=== PATIENT | female | born 1945 | race Caucasian/White ===

== ENCOUNTER 2025-02-04 16:02 | Emergency (ER) | payer MEDICARE ==
[~2025-02-04] VITALS: Ht 165.1 cm; Wt 72.2 kg
[2025-02-04 16:05] VITALS: BP 121/76; PULSE 97; RESP 18; O2SAT 96
--- NOTE | 2025-02-04 16:32 | Physician Documentation ---
History of Present Illness ~ Chief Complaint: Rib pain Stated Complaint: RIB PAIN Time Seen by MD: 16:32 HPI 79-year-old female presents to the emergency department reporting that she fell onto her right ribs on the rim of the bath tub, and immediately noticed pain to the right ribs. Denies any other concerns or injury. Allergies: Coded Allergies: iodine (Unverified Allergy, Unknown, 02/04/25) Active Prescriptions See Medication Reconciliation Form. Medication Reconciliation Scheduled PRN Hydrocodone Bit/Acetaminophen 5/325 MG (Carefree 5/325 MG), 1 TAB PO Q8H PRN for pain Lidocaine (Ztlido), 1 PATCH TOP QDAY PRN PRN for pain Review of Systems ROS As stated above in the HPI, otherwise all systems are reviewed and negative. Physical Exam Vital Signs: Temperature: 98.9, Heart Rate: 97, Respiratory Rate: 18, BP: 121/76, Pulse Oximetry: 96, Weight: 72.250 Oxygen Flow Rate: 0 Physical Exam General: Alert, no apparent distress. HEENT: PERRL, EOMI, no injection, moist mucous membranes. Neck: Full range of motion. Respiratory: Lungs clear, no respiratory distress. Chest: No accessory muscle use. TTP right ribs with no crepitus. Cardiovascular: Regular rate and rhythm, no murmurs. Gastrointestinal: Soft, nontender, nondistended. Bowels sounds present. Extremities: Normal range of motion, no deformity. Neurologic: Oriented x4. Psychiatric: Normal mood and affect. Skin: Normal color, warm and dry. No edema, no ecchymosis. Progress Results/Orders Results/Orders Vital Signs 02/04/25 16:05 Temp 98.9 Pulse 97 Resp 18 B/P (MAP) 121/76 Pulse Ox 96 O2 Flow Rate 0 EKG/XRAY/CT/US/VASC/MRI Chest X-Ray : Additional Comments [facility] [address] , [place], [facility] [id number] DIAGNOSTIC RADIOLOGY Patient: NIRU BARBA Medical Record: [id number] [facility] : 1945, Age: 79 Sex: Female Location: ER Patient Status: REG ER Service Date/Time: 02/04/251623 Ordering Physician: CHLOE MUJICA DO Exam: UNI RIBS WITH PA CHEST [facility] EXAMINATION: DI UNI RIBS WITH PA CHEST INDICATION: RIB PAIN right COMPARISON: None TECHNIQUE: Frontal view of the chest and 5 views of the right ribs history FINDINGS: No focal consolidation, pleural effusion or significant pneumothorax. Normal cardiomediastinal silhouette. Possible subtle nondisplaced fracture of the right anterolateral 9th rib versus artifact. IMPRESSION: No acute cardiopulmonary disease. Possible subtle nondisplaced fracture of the right anterolateral 9th rib versus artifact. Electronically Signed by:ZHOU GUILLEN MD Date & Time: 02/04/251637 Dictated by: ZHOU GUILLEN MD Dictation date and time: 02/04/251637 Primary Care Provider: NO PRIMARY CARE PROVIDER cc: CHLOE MUJICA DO ~ Medical Decision Making Additional Comment 79-year-old female with right anterolateral rib fracture. Tender to palpation patient at this area with no crepitus. No evidence of pneumothorax on chest x- ray. Discussed with the patient that it is very important to prevent pneumonia with bracing the ribs and being sure to cough, deep breathe as needed. She will be sent home with hydrocodone for pain as well as lidocaine patches to be used 12 hours on 12 hours off. She is to follow up with the primary care provider, return if worse. Departure Time of Disposition: 16:53 Disposition: 01 HOME / SELF CARE / HOMELESS Impression: Primary Impression: Fracture of rib Qualified Codes: S22.31XA - Fracture of one rib, right side, initial encounter for closed fracture Discharge Instructions: Rib Fracture Additional Instructions: Brace the sore spot to your right ribs with coughing, sneezing, deep breathing to reduce pain. Take the prescribed pain meds as needed. Caution that they cause drowsiness and constipation. Take a stool softener. Use the lidocaine patches 12 hrs on/12 hrs off. Take Ibuprofen 600 mg three times a day with food if you have no known kidney problems or other contraindications to NSAIDs. Followup with primary care. Return if worse. Referrals: NO PRIMARY CARE PROVIDER (PCP) Prescriptions Lidocaine (Ztlido) 1.8 % Adh..patch 1 PATCH TOP QDAY PRN PRN for pain for 30 Days, #30 PATCH 0 Refills NEEDED FOR PAIN Prov: DEMETRICE JUNE NP 02/04/25 Hydrocodone Bit/Acetaminophen 5/325 MG (Carefree 5/325 MG) 5 Mg/325 Mg Tablet 1 TAB PO Q8H PRN for pain for 5 Days, #15 TAB Prov: DEMETRICE JUNE NP 02/04/25 Education Educated: Patient Educated regarding: diagnosis, treatment, prognosis, need for follow up Signature Scribe Signature: x Attestation: The note accurately reflects work and decisions made by me.Demetrice Alvarenga NP 02/04/25 16:59 DEMETRICE JUNE NP Feb 04, 2025 16:32
--- NOTE | 2025-02-04 16:40 | RADIOLOGY REPORT ---
[facility] EXAMINATION: DI UNI RIBS WITH PA CHEST INDICATION: RIB PAIN right COMPARISON: None TECHNIQUE: Frontal view of the chest and 5 views of the right ribs history FINDINGS: No focal consolidation, pleural effusion or significant pneumothorax. Normal cardiomediastinal silhou ette. Possible subtle nondisplaced fracture of the right anterolateral 9th rib versus artifact. IMPRESSION: No acute cardiopulmonary disease. Possible subtle nondisplaced fracture of the right anterolateral 9th rib versus artifact.
[2025-02-04] MEDS ORDERED: HYDR-3965 PO (16:56)
[2025-02-04] MEDS ORDERED: LIDO1ADH58 TOP (16:56)
[2025-02-04 17:28] VITALS: TEMP 98.9
== END 2025-02-04 17:34 | disposition home or self-care (01) ==
LOC: ER 16:03
DX: S22.31XA Fracture of one rib, right side, initial encounter for closed fracture (principal); Z88.8 Allergy status to other drugs, medicaments and biological substances; W01.198A Fall on same level from slipping, tripping and stumbling with subsequent striking against other object, initial encounter; Y93.89 Activity, other specified; Y92.89 Other specified places as the place of occurrence of the external cause; Y99.8 Other external cause status
CPT/HCPCS: 71101; 99283